=== PATIENT | male | born 1990 | race Two or more races ===

== ENCOUNTER 2023-06-12 12:26 | Emergency (ER) | payer OTHER ==
[~2023-06-12] VITALS: Ht 185.4 cm; Wt 120.2 kg
== END 2023-06-12 17:47 | disposition home or self-care (01) ==
LOC: ER 12:27
DX: S89.81XA Other specified injuries of right lower leg, initial encounter (principal); W19.XXXA Unspecified fall, initial encounter; Y93.89 Activity, other specified; Y92.098 Other place in other non-institutional residence as the place of occurrence of the external cause; Y99.8 Other external cause status